=== PATIENT | female | born 1950 | race Caucasian/White ===

== ENCOUNTER → 2016-10-16 | Outpatient (CLI) | payer OTHER | LOC: FIMAGING 13:35 | DX: Z12.31 Encounter for screening mammogram for malignant neoplasm of breast (principal) | CPT/HCPCS: G0202 ==

== ENCOUNTER 2016-11-10 14:07 | Emergency (ER) | payer OTHER ==
--- NOTE | 2016-11-10 15:36 | EDPHY ---
H & P Stated Complaint: confusion, difficulty focusing Source: Patient - Medical/Surgical History Hx Asthma: No Hx Chronic Respiratory Disease: No Hx Diabetes: No Hx Cardiac Disease: No Hx Renal Disease: No Hx Cirrhosis: No Hx Alcoholism: No Hx HIV/AIDS: No Hx Splenectomy or Spleen Trauma: No Other PMH: bilateral carpal tunnel release, L knee ACL repair - Social History Smoking Status: Never smoked Time Seen by Provider: 11/10/16 15:08 HPI/ROS: CHIEF COMPLAINT: Headache, altered mental status HISTORY OF PRESENT ILLNESS: This is a 66-year-old female presenting to the emergency department. Patient reports around [id number] onset 8/10 headache, feeling confused lightheaded and shaky, symptoms were persistent throughout the night with headache decreasing this morning. Was seen by MD at [facility], concern for TIA. Patient states she had been on Bactrim for UTI she is on her 4th day, denies any dysuria. Patient states she has still has a 1/10 headache no blurred vision, stated her head felt like she was foggy up until being in the waiting room. REVIEW OF SYSTEMS: Constitutional: No fever, no chills. Eyes: No discharge. ENT: No sore throat. Cardiovascular: No chest pain, no palpitations. Respiratory: No cough, no shortness of breath. Gastrointestinal: No abdominal pain, no vomiting. Genitourinary: No hematuria. Musculoskeletal: No back pain. Skin: No rashes. Neurological: headache. Confusion (Lindy Christensen) - Physical Exam Exam: General Appearance: Alert, no distress. Eyes: Pupils equal and round no pallor or injection. ENT, Mouth: Mucous membranes moist. Respiratory: There are no retractions, lungs are clear to auscultation. Cardiovascular: Regular rate and rhythm. Gastrointestinal: Abdomen is soft and nontender, no masses, bowel sounds normal. Neurological: No focal deficits. Ambulatory with out gait disturbance. 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 Musculoskeletal: Neck is supple nontender. Extremities: symmetrical, full range of motion. CMS intact Psychiatric: Patient is oriented X 3, there is no agitation. (Lindy Christensen) Constitutional: Initial Vital Signs Temperature (C) 36.9 C 11/10/16 14:13 Heart Rate 79 11/10/16 14:13 Respiratory Rate 17 11/10/16 14:13 Blood Pressure 143/91 H 11/10/16 14:13 O2 Sat (%) 98 11/10/16 14:13 O2 Delivery Mode Room Air Allergies/Adverse Reactions: Penicillins Allergy (Verified 11/10/16 14:12) Home Medications: Medication Instructions Recorded Bactrim DS 11/10/16 Medical Decision Making - Diagnostics Imaging Results: Imaging Impressions Head CT 11/10/16 15:38 Impression: 1. No significant intracranial abnormality seen. 2. Nonspecific mild inferior maxillary sinus disease. Findings discussed with Lindy Christensen NP at 16:12 hour, 11/10/2016. ED Course/Re-evaluation: Discussed the plan of care: CT head, EKG, CBC, CMP, UA 1515: Spoke with Dr. Shelton negative CT head. 1530: Discussed all results with patient no acute findings. 1710: Consult with Neurology Dr. Campbell, patient can follow up with PCP 1715: Discussed discharge instructions with patient, follow up with Dr. Robles next week. If at any point time any symptoms worsen repeat occurrence return to the ER. Discharge home---> stable, AAO x3 no focal deficits (Lindy Christensen) Differential Diagnosis: Differential diagnosis considered but not limited to CVA, SAH and syncope ( Lindy Christensen) Other Provider: The patient was initially seen and evaluated by Lindy MONTEMAYOR. Please see their dictation for complete details. Additionally I obtained the following history: The patient was started on Bactrim 3 days ago for UTI. Her urinary complaints have improved. Last night the patient developed a severe headache while sitting in front of the computer. She took Ibuprofen, but symptoms did not improve. Her headache has remained constant. She was seen at [facility] who had concern about possible TIA. Patient has a very low grade headache. I reviewed the database, medical/surgical history, and ED course. The midlevel and I discussed the care, treatment, and disposition of the patient. (Eve Bonilla) - Data Points Laboratory Results: Laboratory Results 11/10/16 15:40 11/10/16 15:40 11/10/16 11/10/16 11/10/16 15:40 15:40 15:40 WBC 5.41 10^3/uL 10^3/uL (3.80-9.50) RBC 4.45 10^6/uL 10^6/uL (4.18-5.33) Hgb 14.6 g/dL g/dL (12.6-16.3) Hct 42.2 % % (38.0-47.0) MCV 94.8 fL fL (81.5-99.8) MCH 32.8 pg pg (27.9-34.1) MCHC 34.6 g/dL g/dL (32.4-36.7) RDW 11.9 % % (11.5-15.2) Plt Count 251 10^3/uL 10^3/uL (150-400) MPV 9.2 fL fL (8.7-11.7) Neut % (Auto) 68.6 % % (39.3-74.2) Lymph % (Auto) 21.8 % % (15.0-45.0) [place] % (Auto) 8.1 % % (4.5-13.0) Eos % (Auto) 0.9 % % (0.6-7.6) Baso % (Auto) 0.4 % % (0.3-1.7) Nucleat RBC Rel Count 0.0 % % (0.0-0.2) Absolute Neuts (auto) 3.71 10^3/uL 10^3/uL (1.70-6.50) Absolute Lymphs (auto) 1.18 10^3/uL 10^3/uL (1.00-3.00) Absolute Monos (auto) 0.44 10^3/uL 10^3/uL (0.30-0.80) Absolute Eos (auto) 0.05 10^3/uL 10^3/uL (0.03-0.40) Absolute Basos (auto) 0.02 10^3/uL 10^3/uL (0.02-0.10) Absolute Nucleated RBC 0.00 10^3/uL 10^3/uL (0-0.01) Immature Gran % 0.2 % % (0.0-1.1) Immature Gran # 0.01 10^3/uL 10^3/uL (0.00-0.10) Sodium 139 mEq/L mEq/L (134-144) Potassium 4.1 mEq/L mEq/L (3.5-5.2) Chloride 104 mEq/L mEq/L (97-110) Carbon Dioxide 23 mEq/l mEq/l (22-31) Anion Gap 12 mEq/L mEq/L (8-16) BUN 10 mg/dL mg/dL (7-23) Creatinine 0.9 mg/dL mg/dL (0.6-1.0) Estimated GFR > 60 Glucose 99 mg/dL mg/dL (70-100) Calcium 9.7 mg/dL mg/dL (8.5-10.4) Urine RBC 1-3 /hpf /hpf (0-3) Urine WBC 1-3 /hpf /hpf (0-3) Ur Epithelial Cells NONE SEEN /lpf /lpf (NONE-1+) Departure - Departure Disposition: Home, Routine, Self-Care Clinical Impression: Confusion Headache Qualifiers: Headache type: unspecified Headache chronicity pattern: acute headache Intractability: not intractable Qualified Code(s): R51 - Headache Condition: Good Instructions: Altered Mental Status (ED), General Headache (ED) Additional Instructions: Discussed discharge instructions with patient 1. All results were negative 2. Follow up with Dr. Robles next week 3. If at any point time symptoms worsen or reoccur return to the ER Referrals: Lakesha Robles MD [Primary Care Provider] - As per Instructions
--- NOTE | 2016-11-10 15:55 | CPEKG ---
Heart Rate: 71 RR Interval: 845 P-R Interval: 148 QRSD Interval: 94 QT Interval: 400 QTC Interval: 435 P [place]: 66 QRS [place]: 19 T Wave [place]: -23 EKG Severity - ABNORMAL ECG - EKG Impression: SINUS RHYTHM EKG Impression: ATRIAL PREMATURE COMPLEX EKG Impression: PROBABLE LVH WITH SECONDARY REPOL ABNRM Electronically Signed By: Tiesha Puckett 11-Nov-2016 23:00:17
[2016-11-10 15:57] LABS: % IMMATURE GRANULYOCYTES 0.2 % (0.0-1.1); ABSOLUTE IMMATURE GRANULOCYTES 0.01 10^3/uL (0.00-0.10); ADD DIFF? NO; ADD MORPH? NO; ADD SCAN? NO; ATYPICAL LYMPHOCYTE FLAG 0 (0-99); FRAGMENT RBC FLAG 0 (0-99); HEMATOCRIT 42.2 % (38.0-47.0); HEMOGLOBIN 14.6 g/dL (12.6-16.3); LEFT SHIFT FLG 0 (0-99); LIPEMIA HEMOLYSIS FLAG 90 (0-99); MEAN CELL HEMOGLOBIN 32.8 pg (27.9-34.1); MEAN CELL HEMOGLOBIN CONCENTR. 34.6 g/dL (32.4-36.7); MEAN CELL VOLUME 94.8 fL (81.5-99.8); MEAN PLATELET VOLUME 9.2 fL (8.7-11.7); PLATELET CLUMPS FLAG 0 (0-99); PLATELET COUNT 251 10^3/uL (150-400); RED BLOOD CELL COUNT 4.45 10^6/uL (4.18-5.33); RED CELL DISTRIBUTION WIDTH 11.9 % (11.5-15.2)
[2016-11-10 16:18] LABS: ANION GAP 12 mEq/L (8-16); CALCIUM 9.7 mg/dL (8.5-10.4); CARBON DIOXIDE 23 mEq/l (22-31); CHLORIDE 104 mEq/L (97-110); CREATININE 0.9 mg/dL (0.6-1.0); GLOMERULAR FILTRATION RATE > 60; GLUCOSE 99 mg/dL (70-100); POTASSIUM 4.1 mEq/L (3.5-5.2); SODIUM 139 mEq/L (134-144)
[2016-11-10 16:29] VITALS: PULSE 78
[2016-11-10 17:26] VITALS: BP 136/84; RESP 16; TEMP 98.1; O2SAT 96
== END 2016-11-10 17:33 | disposition home or self-care (01) ==
DX: R51 Headache (principal); R41.0 Disorientation, unspecified

== ENCOUNTER → 2017-10-17 | Outpatient (CLI) | payer OTHER | LOC: FIMAGING 10:55 | PROVIDERS: ATTEND Family Medicine | DX: Z12.31 Encounter for screening mammogram for malignant neoplasm of breast (principal) ==

== ENCOUNTER → 2018-01-22 | Outpatient (CLI) | payer OTHER | LOC: FIMAGING 06:43 | PROVIDERS: ATTEND Internal Medicine Gastroenterology | DX: K76.89 Other specified diseases of liver (principal) ==

== ENCOUNTER → 2018-10-04 | Outpatient (CLI) | payer OTHER | LOC: GIMAGING 12:59 → EDSTATUS 16:00 | PROVIDERS: ATTEND Family Medicine | DX: M25.561 Pain in right knee (principal); M25.562 Pain in left knee; M17.0 Bilateral primary osteoarthritis of knee | CPT/HCPCS: 73565-PO ==

== ENCOUNTER → 2018-10-29 | Outpatient (CLI) | payer OTHER | LOC: FIMAGING 14:58 | PROVIDERS: ATTEND Family Medicine | DX: Z12.31 Encounter for screening mammogram for malignant neoplasm of breast (principal) ==